=== PATIENT | female | born 1960 | race Caucasian/White ===

== ENCOUNTER 2016-08-19 10:17 | Emergency (ER) | payer MEDICAID ==
[~2016-08-19] VITALS: Ht 157.5 cm; Wt 60.0 kg
[~2016-08-19 10:17] MED LIST: ALPR.5 PO; HYDR-2376 PO
[2016-08-19 10:46] VITALS: BP 97/73; PULSE 71; RESP 18; TEMP 97.9; O2SAT 99
[2016-10-27] MEDS ORDERED: OMEP10CA PO (10:44)
[2016-10-27] MEDS ORDERED: VALA500T PO (11:33)
== END 2016-08-19 14:43 | disposition left against medical advice (07) ==
LOC: NED 10:17
DX: R10.9 Unspecified abdominal pain (principal)
CPT/HCPCS: 99281

== ENCOUNTER 2016-08-28 13:15 | Emergency (ER) | payer MEDICAID ==
[~2016-08-28] VITALS: Ht 157.5 cm; Wt 65.0 kg
[2016-08-28 13:19] VITALS: BP 154/87; PULSE 102; RESP 18; TEMP 97.3; O2SAT 95
[2016-08-28] MEDS ORDERED: OMEP10CA PO (13:36)
[2016-08-28] MEDS ORDERED: METR-1 PO (13:36)
[2016-08-28] MEDS ORDERED: ALPR0.5T3 PO (13:36)
[2016-08-28] MEDS ORDERED: DICY10CA12 PO (13:36)
[2016-08-28] MEDS ORDERED: HYDR-2376 PO (13:36)
--- NOTE | 2016-08-28 13:51 | PD ---
HPI Chief Complaint: GI Complaint Time Seen by Provider: 13:51 Travel History International Travel<30 days: No Contact w/Intl Traveler<30days: No Traveled to known affect area: No History of Present Illness HPI 56 year old female with PMH of diverticulosis, metastatic non-small cell lung cancer, followed by Dr. Donald Ruth, presents to the ED for evaluation 3 month history of abdominal pain. Patient states this has worsened over the last 3 days. Described as constant, over the entire abdomen, radiating to the back currently rated 4/10. She complains of anorexia, early satiety, bloating, nausea, diarrhea and dark urine. She denies vomiting, melena, hematochezia, dysuria. She states that she has an appointment for upper and lower endoscopy on 09/[address] Alvarez in [place]. Treated with 7.5 hydrocodone this morning with only mild improvement of symptoms. PFSH Past Medical History Anxiety: Yes Heart Rhythm Problems: Yes (Palpitations) Cancer: Yes (LUNG) Cardiovascular Problems: No Chemotherapy: Yes Diabetes: No Endocrine: No Genitourinary: No Headaches: Yes Hepatitis: No Hiatal Hernia: No Immune Disorder: No Musculoskeletal: No Neurologic: No Psychiatric: No Reproductive: No Respiratory: Yes Immunizations Current: Yes Thyroid Disease: No Tetanus Vaccination: > 5 Years Influenza Vaccination: No ?: Not Menopausal: Yes Past Surgical History Surgical History: No Previous Surgery Abdominal Surgery: No AICD: No Cardiac Surgery: No Ear Surgery: No Endocrine Surgery: No Eye Surgery: No Genitourinary Surgery: No Gynecologic Surgery: No Joint Replacement: No Oral Surgery: No Pacemaker: No Thoracic Surgery: No Social History Alcohol Use: Yes (OCCASIONALLY) Tobacco Use: No Substance Use: Yes (tanvi. 3 times a week) Allergies-Medications (Allergen,Severity, Reaction): Coded Allergies: Penicillin (Verified Allergy, Intermediate, Hives, 08/28/16) Reported Meds & Prescriptions Reported Meds & Active Scripts Active [place] (Hydrocodone-Acetaminophen) 7.5-325 mg Tab 1 Tab PO Q6H PRN Zofran Odt (Ondansetron Odt) 4 Mg Tab 4 Mg SL Q8HR PRN Reported Flagyl (Metronidazole) 500 Mg Tab 500 Mg PO TID Alprazolam 0.5 Mg Tab 0.5 Mg PO TID PRN Hydrocodone-Acetaminophen 7.5-300 Mg Tab 1 Tab PO Q6H PRN Omeprazole 10 Mg Cap 10 Mg PO DAILY Dicyclomine (Dicyclomine HCl) 10 Mg Cap 10 Mg PO TID Review of Systems Except as stated in HPI: all other systems reviewed are Neg Physical Exam Narrative GENERAL: Well-nourished, well-developed nontoxic appearing white female in no acute distress. SKIN: Warm and dry. Nasal piercing without signs of infection. HEAD: Normocephalic. EYES: No scleral icterus. No injection or drainage. NECK: Supple, trachea midline. No JVD or lymphadenopathy. CARDIOVASCULAR: Regular rate and rhythm without murmurs, gallops, or rubs. 2+ DP and radial pulses bilaterally. RESPIRATORY: Breath sounds clear and equal bilaterally. No accessory muscle use. GASTROINTESTINAL: Hypoactive bowel sounds. Abdomen soft, nondistended. Diffusely tender. No rebound tenderness. No suprapubic tenderness. No palpable masses. MUSCULOSKELETAL: No cyanosis, or edema. Patient is a and moves extremities spontaneously. BACK: Nontender without obvious deformity. Mild bilateral CVA tenderness. Data Data Last Documented VS Vital Signs Date Time Temp Pulse Resp B/P Pulse Ox O2 Delivery O2 Flow Rate FiO2 08/28/16 13:19 97.3 102 18 154/87 95 Room Air Orders Complete Blood Count With Diff (08/28/16 14:10) Comprehensive Metabolic Panel (08/28/16 14:10) Lipase (08/28/16 14:10) Lactic Acid (08/28/16 14:10) Urinalysis - C+S If Indicated (08/28/16 14:10) Ct Abd/Pel W Iv Contrast(Rout) (08/28/16 14:10) Iv Access Insert/Monitor (08/28/16 14:10) Ondansetron Inj (Zofran Inj) (08/28/16 14:15) Sodium Chlor 0.9% 1000 Ml Inj (Ns 1000 M (08/28/16 14:10) Sodium Chloride 0.9% Flush (Ns Flush) (08/28/16 14:15) Iohexol 350 Inj (Omnipaque 350 Inj) (08/28/16 15:29) Labs Laboratory Tests Test 08/28/16 14:20 White Blood Count 10.9 TH/MM3 Red Blood Count 5.46 MIL/MM3 Hemoglobin 14.5 GM/DL Hematocrit 43.3 % Mean Corpuscular Volume 79.4 FL Mean Corpuscular Hemoglobin 26.6 PG Mean Corpuscular Hemoglobin 33.6 % Concent Red Cell Distribution Width 15.6 % Platelet Count 197 TH/MM3 Mean Platelet Volume 9.1 FL Neutrophils (%) (Auto) 64.8 % Lymphocytes (%) (Auto) 23.3 % Monocytes (%) (Auto) 11.1 % Eosinophils (%) (Auto) 0.3 % Basophils (%) (Auto) 0.5 % Neutrophils # (Auto) 7.0 TH/MM3 Lymphocytes # (Auto) 2.5 TH/MM3 Monocytes # (Auto) 1.2 TH/MM3 Eosinophils # (Auto) 0.0 TH/MM3 Basophils # (Auto) 0.1 TH/MM3 CBC Comment DIFF FINAL Differential Comment Urine Color LIGHT-YELLOW Urine Turbidity CLEAR Urine pH 5.5 Urine Specific [place] 1.002 Urine Protein NEG mg/dL Urine Glucose (UA) NEG mg/dL Urine Ketones NEG mg/dL Urine Occult Blood NEG Urine Nitrite NEG Urine Bilirubin NEG Urine Urobilinogen LESS THAN 2.0 MG/DL Urine Leukocyte Esterase NEG Urine RBC LESS THAN 1 /hpf Urine WBC 1 /hpf Urine Squamous Epithelial 2 /hpf Cells Microscopic Urinalysis Comment CULT NOT INDICATED Sodium Level 140 MEQ/L Potassium Level 4.1 MEQ/L Chloride Level 107 MEQ/L Carbon Dioxide Level 26.9 MEQ/L Anion Gap 6 MEQ/L Blood Urea Nitrogen 9 MG/DL Creatinine 0.83 MG/DL Estimat Glomerular Filtration 71 ML/MIN Rate Random Glucose 95 MG/DL Lactic Acid Level 0.6 mmol/L Calcium Level 8.5 MG/DL Total Bilirubin 0.3 MG/DL Aspartate Amino Transf 16 U/L (AST/SGOT) Alanine Aminotransferase 29 U/L (ALT/SGPT) Alkaline Phosphatase 57 U/L Total Protein 7.3 GM/DL Albumin 3.7 GM/DL Lipase 168 U/L [facility] Medical Decision Making Medical Screen Exam Complete: Yes Emergency Medical Condition: Yes Interpretation(s) Review the patient's record reveals she underwent CT on 07/02/16, normal at that time. HIDA scan on 07/23/16 that was negative. She saw Dr. Donald Ruth on August 19. Differential Diagnosis Cholecystitis versus pancreatitis versus appendicitis versus gastroenteritis versus metastatic disease versus bowel obstruction versus other Narrative Course 56 year old female with PMH of diverticulosis, metastatic non-small cell lung cancer, followed by Dr. Donald Ruth, presents to the ED for evaluation 3 month history of abdominal pain. Patient states this has worsened over the last 3 days. Described as constant, over the entire abdomen, radiating to the back currently rated 4/10. She complains of anorexia, early satiety, bloating, nausea, diarrhea and dark urine. She denies vomiting, melena, hematochezia, dysuria. She states that she has an appointment for upper and lower endoscopy on 09/[address] Alvarez in [place]. Treated with 7.5 hydrocodone this morning with only mild improvement of symptoms. PCP Dr. Cruz. IV was established. Patient was administered IV Zofran and1L NS. CBC: No leukocytosis or anemia CMP: Unremarkable Lactic: 0.6 Lipase: 168 UA: No indication for culture CT abdomen and pelvis: Sigmoid diverticulosis. No evidence for inflammatory process, abscess or metastatic disease per radiology read. I discussed the patient, workup and plan with Dr. Roman who agrees. I discussed the results of the workup with the patient. She does endorse improvement of symptoms with Zofran. I provided her with a course of Zofran and pain medications. I instructed her to take the medications as prescribed, follow up with the form setter [employer] forms as planned. We discussed reasons to return to the ED. She indicated understanding of the instructions and is amenable to plan of care. She is stable and discharged home. Diagnosis Primary Impression: Chronic generalized abdominal pain Additional Impression: Nausea Referrals: Donald Ruth MD Manager Critical Care Unit Patient Instructions: Chronic Abdominal Pain (ED), General Instructions Additional Instructions: Rest, hydrate. Resume all home medications. Zofran as needed for nausea. Take pain medications as prescribed. Follow-up with Dr. Ruth and the form setter [employer] forms as discussed. Return to the ED for any urgent or emergent medical condition. Med/Other Pt SpecificInfo: Prescription(s) given Scripts Hydrocodone-Acetaminophen ([place])7.5-325 mg Tab1 Tab PO Q6H PRN (PAIN) #15 TAB Ref 0 Prov:Latia Roman MD 08/28/16 Ondansetron Odt (Zofran Odt)4 Mg Tab4 Mg SL Q8HR PRN (Nausea/Vomiting) #20 TAB Ref 0 Prov:Latia Roman MD 08/28/16 Disposition: 01 DISCHARGE HOME Condition: Stable Aan Whitehead Aug 28, 2016 13:51
[2016-08-28] MEDS ORDERED: SODIUM CHLOR 0.9% 1000 ML INJ 1,000 ML IV SCH (14:10)
[2016-08-28] MEDS ORDERED: SODIUM CHLORIDE 0.9% FLUSH 5 ML FLUSH IVF PRN (14:15)
[2016-08-28] MEDS ORDERED: ONDANSETRON HCL 4 MG/2 ML VIAL IVP ONE (14:15)
[2016-08-28 14:40] LABS: BLOOD, URINE NEG (NEG); COMMENT (UR) CULT NOT INDICATED; CULTURE IF INDICATED CULT NOT INDICATED; GLUCOSE,URINE NEG (NEG); KETONE, URINE NEG (NEG); NITRITE,URINE NEG (NEG); PH, URINE 5.5 (5.0-8.5); SQUAMOUS EPITHELIAL CELL URINE 2 /hpf (0-5); URINE COLOR LIGHT-YELLOW (YELLW/STRAW)
[2016-08-28 14:45] LABS: BASOPHIL # 0.1 TH/MM3 (0-0.2); BASOPHIL % 0.5 % (0.0-2.0); EOSINOPHIL % 0.3 % (0.0-4.0); HEMATOCRIT 43.3 % (35.0-46.0); HEMO FLAGS DIFF FINAL; LYMPH % 23.3 % (9.0-44.0); LYMPHOCYTE # 2.5 TH/MM3 (1.0-4.8); MEAN CELL VOLUME 79.4 FL (80.0-100.0); MEAN CORPUSCULAR HEMOGLOBIN 26.6 PG (27.0-34.0); MEAN CORPUSCULAR HGB CONC 33.6 % (32.0-36.0); MONO % 11.1 % (0.0-8.0); NEUT % 64.8 % (16.0-70.0); PLATELET COUNT 197 TH/MM3 (150-450); RED BLOOD COUNT 5.46 MIL/MM3 (4.00-5.30); RED CELL DISTRIBUTION WIDTH 15.6 % (11.6-17.2); WHITE BLOOD COUNT 10.9 TH/MM3 (4.0-11.0)
[2016-08-28 14:59] LABS: ANION GAP 6 MEQ/L (5-15); AST (GOT) 16 U/L (15-37); BICARBONATE 26.9 MEQ/L (21.0-32.0); BLOOD UREA NITROGEN 9 MG/DL (7-18); CHLORIDE 107 MEQ/L (98-107); GLOMERULAR FILTRATION RATE 71 ML/MIN (>89); POTASSIUM 4.1 MEQ/L (3.5-5.1); SODIUM (NA) 140 MEQ/L (136-145)
[2016-08-28 15:02] LABS: ALKALINE PHOSPHATASE 57 U/L (45-117); ALT (GPT) 29 U/L (10-53); TOTAL BILIRUBIN ADULT 0.3 MG/DL (0.2-1.0)
[2016-08-28] MEDS ORDERED: IOHEXOL 350 MG/ML 10 ML VIAL (for RAD DIAG) IV ONE (15:29)
--- NOTE | 2016-08-28 15:51 | RADRPT ---
EXAM DATE/TIME: 08/28/2016 15:25 [facility] COMPARISON: No previous studies available for comparison. INDICATIONS : Abdominal pain for 3 months, history of lung cancer with metastatic disease. IV CONTRAST: 70 cc Omnipaque 350 (iohexol) IV ORAL CONTRAST: No oral contrast ingested. RADIATION DOSE: 10.08 CTDIvol (mGy) MEDICAL HISTORY : Carcinoma, lung. Cardiovascular disease SURGICAL HISTORY : None. ENCOUNTER: Initial ACUITY: 4 - 6 months PAIN SCALE: 5/10 LOCATION: Diffuse abdomen TECHNIQUE: Volumetric scanning of the abdomen and pelvis was performed. Using automated exposure control and ad justment of the mA and/or kV according to patient size, radiation dose was kept as low as reasonably achievable to obtain optimal diagnostic quality images. FINDINGS: LOWER LUNGS: The visualized lower lungs are clear. LIVER: Homogeneous density without lesion. There is no dilation of the biliary tree. No calcified gallston es. SPLEEN: Normal size without lesion. PANCREAS: Within normal limits. KIDNEYS: Normal in size and shape. There is no mass, stone or hydronephrosis. ADRENAL GLANDS: Within normal limits. VASCULAR: There is no aortic aneurysm. BOWEL/MESENTERY: The stomach, small bowel, and colon demonstrate no acute abnormality. There is no free intraperitone al air or fluid. There are extensive diverticuli identified throughout the sigmoid colon without evid ence of adjacent inflammatory change or abscess. ABDOMINAL WALL: Within normal limits. RETROPERITONEUM: There is no lymphadenopathy. BLADDER: No wall thickening or mass. REPRODUCTIVE: Within normal limits. INGUINAL: There is no lymphadenopathy or hernia. MUSCULOSKELETAL: Within normal limits for patient age. CONCLUSION: Sigmoid diverticulosis. No evidence of adjacent inflammatory change or abscess. No evidence of metast atic disease on this exam.. Alicia Bhagat MD on August 28, 2016 at 15:47 Board Certified Radiologist. This report was verified electronically.
[2016-08-28] MEDS ORDERED: ZOFR4TAB3 SL (16:20)
[2016-08-28] MEDS ORDERED: HYDR-3288 PO (16:20)
[2016-10-27] MEDS ORDERED: OMEP10CA PO (10:44)
[2016-10-27] MEDS ORDERED: VALA500T PO (11:33)
== END 2016-08-28 16:33 | disposition home or self-care (01) ==
LOC: NETRI 13:15
DX: R10.84 Generalized abdominal pain (principal); F41.9 Anxiety disorder, unspecified; Z85.118 Personal history of other malignant neoplasm of bronchus and lung; F12.10 Cannabis abuse, uncomplicated
CPT/HCPCS: 74177; 80053; 81001; 83605; 83690; 85025; 96361; 96374; 99284; J2405; J7030; Q9967

== ENCOUNTER 2017-03-16 06:29 | Day surgery (SDC) | payer MEDICAID ==
[~2017-03-16] VITALS: Ht 157.5 cm; Wt 57.0 kg
[~2017-03-16 06:29] MED LIST changes: -ALPR.5 PO; +ALPR0.5T3 PO; +DICY10CA12 PO; -HYDR-2376 PO; +HYDR-3288 PO; +OMEP10CA PO; +VALA500T PO
[2017-03-16 06:53] VITALS: BP 110/76; PULSE 95; RESP 20; TEMP 98.2; O2SAT 98
[2017-03-16] MEDS ORDERED: SODIUM CHLORIDE 0.9% 1000 ML IV SCH (07:00)
[2017-03-16] MEDS ORDERED: tumeric (07:07)
[2017-03-16] MEDS ORDERED: LACTCAP8 PO (07:07)
[2017-03-16] MEDS ORDERED: PROT40TA PO (07:07)
[2017-03-16 07:36] LABS: APTT (PATIENT) 30.9 SEC (24.3-30.1); PROTHROMBIN TIME - PATIENT 10.9 SEC (9.8-11.6)
[2017-03-16] MEDS ORDERED: fentaNYL CITRATE 250 MCG/5 ML AMP ONE (08:02)
[2017-03-16] MEDS ORDERED: MIDAZOLAM HCL 2 MG/2 ML VIAL ONE (08:02)
[2017-03-16] MEDS ORDERED: LIDOCAINE 1%/EPINEPHrine 1:100,000 SOLN 20 ML VIAL ONE (08:21)
--- NOTE | 2017-03-16 08:51 | PD.RAD ---
Post Procedure Progress Note Pre Procedure Diagnosis: (1) Lung cancer Post Procedure Diagnosis: (1) Lung cancer Procedure Date: Mar 16, 2017 Supervising Radiologist: Shelton Muhammad JR Proceduralist/Assist: Jaime Ewing, RT(R), Waylon Valle RT(R) Anesthesia: Conscious Sedation Plan of Activity Patient to Unit: ROPU Patient Condition: Good See PACS Report for procedural detail/treatment Central Venous Access Device Procedure 1 Right Internal Jugular Infusaport Removal single lumen Chinese: 8 Findings: Port removed without difficulty. No signs of infection. Plan F/U with IR or a physician in 10-14 days for a site check Jr. Jb,Shelton Sauer MD Mar 16, 2017 08:51
[2017-03-16 09:00] VITALS: BP 99/55; PULSE 63; RESP 16; TEMP 97.9; O2SAT 95
[2017-03-16 09:15] VITALS: BP_SYST 105; BP_SYST 99; BP_DIAS 55; BP_DIAS 60; PULSE 65; RESP 16; O2SAT 96
[2017-03-16 09:30] VITALS: BP 114/69; PULSE 63; RESP 16; O2SAT 96
[2017-03-16 10:00] VITALS: BP 109/65; PULSE 68; RESP 16; O2SAT 96
[2017-03-16 10:30] VITALS: BP 100/59; PULSE 60; RESP 16; O2SAT 96
--- NOTE | 2017-03-16 12:04 | RADRPT ---
EXAM DATE/TIME: 03/16/2017 07:19 [facility] COMPARISON: No previous studies available for comparison. INDICATIONS : Patient presents with a history of lung cancer and is in need of port removal that is no longer neede d. MEDICAL HISTORY : Hx of lung cancer Chronic low back pain Herpes Anxiety SURGICAL HISTORY : EGD Colonoscopy Laser sx for cervical dysplasia Port placement ENCOUNTER: Subsequent ACUITY: > 1 year PAIN SCORE: 0/10 LOCATION: N/A SEDATION TIME: 25 minutes 1.) 1.5 mg midazolam (Versed) IV 2.) 125 mcg fentanyl (Sublimaze) IV Prophylactic antibiotics were administered with appropriate pre-procedure timing. Vancomycin within 2 hrs of procedure, Ancef (or alternative) within 1 hr of procedure. PROCEDURE : 1. Removal of [id number]. 2. Conscious sedation with continuous EKG and oximetry monitoring. The risk, benefits and potential complications of [id number] removal were discussed. Written conse nt was obtained. The patient was placed supine. The chest wall was prepped in sterile fashion. Full sterile techniqu e was used, including cap, mask, sterile gloves and gown, and a large sterile sheet. Hand hygiene an d 2% chlorhexidine and/or Betadine/alcohol prep was utilized per protocol for cutaneous antisepsis. T here are no signs of infection. The skin and subcutaneous tissues were infiltrated with local anesthe tic solution. A small incision was made, the subcutaneous pocket was opened. The port was dissected f rom the subcutaneous tissues and easily removed in one piece. The pocket incision was closed with helms bcuticular Vicryl suture. Steri-Strips were applied. Conscious sedation was performed with the prescribed dosages and duration as above in the presence of an independent trained radiology nurse to assist in the monitoring of the patient. EKG and oximetry remained stable throughout the procedure. The patient tolerated the procedure well and there were no complications. The patient was sent to post anesthesia recovery in stable condition. CONCLUSION: Uncomplicated right port removal as above. Shelton Muhammad Jr., MD on March 16, 2017 at 12:01 Board Certified Radiologist. This report was verified electronically.
== END 2017-03-16 11:10 | disposition home or self-care (01) ==
LOC: HROP 06:29 → HRIP 06:30 → HROP 11:10
PROVIDERS: ATTEND Internal Medicine Hematology & Oncology
DX: Z45.2 Encounter for adjustment and management of vascular access device (principal); C34.90 Malignant neoplasm of unspecified part of unspecified bronchus or lung; G89.29 Other chronic pain; M54.5 Low back pain; Z01.818 Encounter for other preprocedural examination; R00.2 Palpitations
CPT/HCPCS: 36590; 85610; 85730; 99152; 99153; J2250; J3010; J7030

== ENCOUNTER 2017-07-02 10:32 | Emergency (ER) | payer MEDICAID ==
[~2017-07-02] VITALS: Ht 157.5 cm; Wt 56.5 kg
[~2017-07-02 10:32] MED LIST changes: -DICY10CA12 PO; -HYDR-3288 PO; +LACTCAP8 PO; -OMEP10CA PO; +PROT40TA PO; -VALA500T PO; +tumeric
[2017-07-02 10:39] VITALS: BP 121/82; PULSE 86; RESP 18; TEMP 98.7; O2SAT 98
[2017-07-02] MEDS ORDERED: TURM500C7 PO (11:58)
--- NOTE | 2017-07-02 12:03 | PD ---
HPI Chief Complaint: Musculoskeletal Complaint Time Seen by Provider: 11:54 Travel History International Travel<30 days: No Contact w/Intl Traveler<30days: No Traveled to known affect area: No History of Present Illness HPI The patient was seen and examined in the presence of the nurse. This patient complains of left-sided lower rib cage pain. Started 5 days ago. She was leaning the kitchen counter with her body weight and developed rib pain during that. Seemed worse today concerned about it. Severity is moderate. Worse with pressing on her left lower rib cage. Denies shortness of breath. No alleviating factors. PFSH Past Medical History Anxiety: Yes Heart Rhythm Problems: Yes (Palpitations) Cancer: Yes (LUNG) Cardiovascular Problems: No Chemotherapy: Yes (may 2016) Diabetes: No Diminished Hearing: No Diverticulitis: Yes Endocrine: No Gastrointestinal Disorders: Yes (colitis) Genitourinary: No Headaches: Yes Hepatitis: No Hiatal Hernia: Yes Immune Disorder: No Musculoskeletal: No Neurologic: No Psychiatric: No Reproductive: No Respiratory: Yes (LUNG CA) Immunizations Current: Yes Radiation Therapy: Yes (lung) Thyroid Disease: No Tetanus Vaccination: > 5 Years Influenza Vaccination: No ?: Not Menopausal: Yes Past Surgical History Abdominal Surgery: No AICD: No Cardiac Surgery: No Ear Surgery: No Endocrine Surgery: No Eye Surgery: No Genitourinary Surgery: No Gynecologic Surgery: No Joint Replacement: No Oral Surgery: No Pacemaker: No Thoracic Surgery: No Other Surgery: Yes (bx lung stage 4 ca) Social History Alcohol Use: Yes (OCCASIONALLY) Tobacco Use: Yes (1 pk) Substance Use: Yes (tanvi. 3 times a week) Allergies-Medications (Allergen,Severity, Reaction): Coded Allergies: penicillin G (Verified Allergy, Intermediate, Hives, 07/02/17) Reported Meds & Prescriptions Reported Meds & Active Scripts Active Reported Turmeric (Turmeric Root Extract) 500 Mg Capsule 2 Cap PO DAILY Probiotic (Lactobacillus Acidophilus) 1 Cap Cap 2 Cap PO DAILY Alprazolam 0.5 Mg Tab 0.5 Mg PO TID PRN Review of Systems General / Constitutional: No: Fever HENT: No: Headaches Cardiovascular: Positive: Chest Pain or Discomfort Respiratory: No: Cough Gastrointestinal: No: Abdominal Pain Physical Exam Narrative GASTROINTESTINAL: Abdomen soft, non-tender, nondistended. Positive bowel sounds. No hepato-splenomegaly, or palpable masses. No guarding. RESPIRATORY: Respiratory effort unlabored, no retractions or use of accessory muscles. Breath sounds are clear and symmetric. SKIN: Focused skin assessment reveals no rash or ulcers. Skin is warm and dry. Palpation shows no induration or nodules. Chest wall: Has reproducible tenderness in the left lower rib margin. I don't see any bruising or paradoxical rib movement. No crepitus. Data Data Last Documented VS Vital Signs Date Time Temp Pulse Resp B/P (MAP) Pulse Ox O2 Delivery O2 Flow Rate FiO2 07/02/17 10:39 98.7 86 18 121/82 (95) 98 Orders Orders Chest, Single Ap (07/02/17 ) [facility] Medical Decision Making Medical Screen Exam Complete: Yes Emergency Medical Condition: Yes Medical Record Reviewed: Yes Differential Diagnosis Rib fracture, contusion, pneumothorax Narrative Course I have reviewed the patient's electronic medical record. Reviewed her oncologist note from last month. She has metastatic lung cancer history I reviewed her chest x-ray which when compared to the prior is the same. There is no pneumothorax or rib fracture Stable for outpatient follow-up Diagnosis Primary Impression: Musculoskeletal chest pain Additional Instructions: The patient was advised to follow up with their physician and return if they worsen. Med/Other Pt SpecificInfo: Other Disposition: 01 DISCHARGE HOME Condition: Stable Bar Callejas MD Jul 02, 2017 12:03
--- NOTE | 2017-07-02 12:48 | RADRPT ---
EXAM DATE/TIME: 07/02/2017 12:34 [facility] COMPARISON: CHEST PA & LAT, August 09, 2014, 12:10. CHEST EXPIRATION ONLY, September 26, 2015, 10:29. CHEST EX PIRATION ONLY, September 26, 2015, 12:03. INDICATIONS : Left side rib pain, after bending over. MEDICAL HISTORY : Carcinoma, lung. chemo, radiation SURGICAL HISTORY : infusaport ENCOUNTER: Initial ACUITY: 4 - 6 days PAIN SCORE: 7/10 LOCATION: Left chest FINDINGS: A single view of the chest demonstrates the lungs to be symmetrically aerated without evidence of mas s, infiltrate or effusion. There continues to be stable linear scarring in the left upper lung which is unchanged compared back to 2013. There is chronic interstitial changes bilaterally. The cardiomed iastinal contours are unremarkable and stable. Osseous structures are intact and stable. CONCLUSION: No acute disease. No significant change has occurred. Rodolfo Blake MD on July 02, 2017 at 12:45 Board Certified Radiologist. This report was verified electronically.
[2017-07-02 13:31] VITALS: BP 117/65
== END 2017-07-02 13:38 | disposition home or self-care (01) ==
LOC: PHED 10:32
DX: R07.89 Other chest pain (principal); Z72.0 Tobacco use; Z85.118 Personal history of other malignant neoplasm of bronchus and lung; Z86.59 Personal history of other mental and behavioral disorders; Z86.79 Personal history of other diseases of the circulatory system; Z87.19 Personal history of other diseases of the digestive system; X58.XXXA Exposure to other specified factors, initial encounter; Y92.000 Kitchen of unspecified non-institutional (private) residence as the place of occurrence of the external cause
CPT/HCPCS: 71010; 99283

== ENCOUNTER → 2017-09-16 | Outpatient (CLI) | payer OTHER, MEDICAID ==
[~2017-09-16] MED LIST changes: -PROT40TA PO; +TURM500C7 PO; -tumeric
--- NOTE | 2017-09-16 14:32 | RADRPT ---
EXAM DATE/TIME: 09/16/2017 13:21 [facility] COMPARISON: CT NEEDLE BIOPSY LUNG, RIGHT, September 26, 2015, 8:29. INDICATIONS : Short of breath, restaging of lung cancer. RADIATION DOSE: 6.18 CTDIvol (mGy) MEDICAL HISTORY : Carcinoma, lung. SURGICAL HISTORY : None. ENCOUNTER: Initial ACUITY: >1 yr PAIN SCALE: 2/10 LOCATION: Bilateral chest TECHNIQUE: Volumetric scanning of the chest was performed. Using automated exposure control and adjustment of t he mA and/or kV according to patient size, radiation dose was kept as low as reasonably achievable to obtain optimal diagnostic quality images. DICOM format image data is available electronically for r eview and comparison. Follow-up recommendations for detected pulmonary nodules are based at a minimum on nodule size and pa tient risk factors according to Fleischner Society Guidelines. FINDINGS: LUNGS: There is linear parenchymal opacity in the left perihilar/left upper lobe extending to the pleural helms rface. Parenchymal opacity in the right upper lobe also extend to the pleural surface with slight nod ularity measuring 1 cm. There is a 5 mm and 4 mm nodule right lower lobe. Few scattered 2-3 mm nodule s are seen within the left lower lobe PLEURAE: There is no pleural thickening or pleural effusion. MEDIASTINUM: The heart and great vessels demonstrate no acute abnormality. There is no mediastinal or hilar lymph adenopathy. AXILLAE: Within normal limits. No lymphadenopathy. MUSCULOSKELETAL: Within normal limits for patient age. MISCELLANEOUS: The visualized upper abdominal organs demonstrate no acute abnormality. CONCLUSION: 1. Linear parenchymal opacity in left upper lobe extending from the left suprahilar region to the lef t pleural surface laterally. 2. Similar opacity in the right upper lobe with slight nodularity measures 1.1 cm. 3. Subcentimeter nodules right lower lobe. Mauro Schwartz MD on September 16, 2017 at 14:25 Board Certified Radiologist. This report was verified electronically.
== END ==
LOC: HRAD 12:14
PROVIDERS: ATTEND Internal Medicine Hematology & Oncology
DX: C34.90 Malignant neoplasm of unspecified part of unspecified bronchus or lung (principal); R06.02 Shortness of breath
CPT/HCPCS: 71250